=== PATIENT | female | born 1945 | race Hispanic/Latino ===

== ENCOUNTER 2017-11-04 11:07 | Outpatient (CLI) | payer MEDICARE ==
--- NOTE | 2017-11-05 13:05 | Mammography Report ---
BILATERAL DIGITAL SCREENING MAMMOGRAM with CAD : 11/04/17 11:07:00 CLINICAL: Routine screening. COMPARISON:04/10/16 FINDINGS: The breasts are heterogeneously dense, which may obscure small masses. No mass, architectural distortion or suspicious calcifications. IMPRESSION: No mammographic evidence of malignancy. BI-RADS CATEGORY: 2 -- Benign RECOMMENDATION: Routine mammographic screening in one year. COMMENT: Patient follow-up letters are generated by our [employer] application.
== END 2017-11-04 11:08 | disposition home or self-care (01) ==
LOC: MAMMO 11:07
PROVIDERS: ATTEND Internal Medicine
DX: Z12.31 Encounter for screening mammogram for malignant neoplasm of breast (principal)
CPT/HCPCS: 77067

== ENCOUNTER 2018-11-08 11:04 | Outpatient (CLI) | payer MEDICARE ==
--- NOTE | 2018-11-08 14:03 | Mammography Report ---
BILATERAL DIGITAL SCREENING MAMMOGRAM with CAD : 11/08/18 11:04:00 CLINICAL: Routine screening. COMPARISON:11/04/17 FINDINGS: The breasts are heterogeneously dense, which may obscure small masses. No mass, architectural distortion or suspicious calcifications. IMPRESSION: No mammographic evidence of malignancy. BI-RADS CATEGORY: 2 -- Benign RECOMMENDATION: Routine mammographic screening in one year. COMMENT: Patient follow-up letters are generated by our [employer] application.
== END 2018-11-08 11:05 | disposition home or self-care (01) ==
LOC: MAMMO 11:04
PROVIDERS: ATTEND Internal Medicine
DX: Z12.31 Encounter for screening mammogram for malignant neoplasm of breast (principal); I11.0 Hypertensive heart disease with heart failure; I50.9 Heart failure, unspecified; I25.10 Atherosclerotic heart disease of native coronary artery without angina pectoris; E78.5 Hyperlipidemia, unspecified; E78.00 Pure hypercholesterolemia, unspecified; K21.9 Gastro-esophageal reflux disease without esophagitis; Z87.891 Personal history of nicotine dependence
CPT/HCPCS: 77067

== ENCOUNTER 2019-03-15 20:54 | Emergency (ER) | payer MEDICARE ==
--- NOTE | 2019-03-15 21:36 | Event Note ---
ED Screening Note Date of service: 03/15/19 Time: 21:33 ED Screening Note: 73 y o f presents s/p fall cc of left elbow pain and abrasion and forehead abrasion This initial assessment/diagnostic orders/clinical plan/treatment(s) is/are subject to change based on patients health status, clinical progression and re- assessment by fellow clinical providers in the ED. Further treatment and workup at subsequent clinical providers discretion. Patient/guardian urged not to elope from the ED as their condition may be serious if not clinically assessed and managed. Initial orders include: head ct, xr elbow
--- NOTE | 2019-03-15 22:40 | Cat Scan Report ---
CT head/brain wo con INDICATION: Fell down fell down TECHNIQUE: Routine CT head without contrast. Sagittal and coronal reformatted images were obtained. A ll CT scans at this location are performed using CT dose reduction for ALARA by means of automated ex posure control. COMPARISON: None. FINDINGS: BRAIN / INTRACRANIAL CONTENTS: I do not see intracranial sequela from the trauma. I do not see air-fl uid level in the visualized portions of the paranasal sinuses. I do not see scalp hematoma. No acute hemorrhage, mass effect, midline shift, hydrocephalus, or acute, large territorial infarct. Moderate generalized cortical involution is seen. Normal temporal horn tips suggest normal medial tem poral lobes. Volume loss is seen in the cerebellar vermis. No significant white matter abnormality CRANIOCERVICAL JUNCTION: No significant abnormality. ORBITS: No significant abnormality of visualized orbits. SINUSES / MASTOIDS: No significant abnormality of the visualized paranasal sinuses or mastoid air ismael ls. ADDITIONAL FINDINGS: None. IMPRESSION: I do not see intracranial sequela from the trauma. Signer Name: Griffin Pantoja MD Signed: 03/15/2019 10:36 PM Workstation Name: [id number]
--- NOTE | 2019-03-15 23:04 | XRay Report ---
LEFT WRIST 2 VIEWS INDICATION / CLINICAL INFORMATION: wrist pain. COMPARISON: None available. FINDINGS: There is a comminuted moderately displaced fracture of the left distal radius with extension into the radial carpal and distal radioulnar joints. An associated ulnar styloid fracture is also noted. Signer Name: Eh Topete MD Signed: 03/15/2019 11:00 PM Workstation Name: [id number]
--- NOTE | 2019-03-15 23:05 | XRay Report ---
LEFT ELBOW 2 VIEWS INDICATION / CLINICAL INFORMATION: pain. COMPARISON: None available. FINDINGS: No fracture, dislocation or left elbow effusion is present. Signer Name: Eh Topete MD Signed: 03/15/2019 11:01 PM Workstation Name: [id number]
--- NOTE | 2019-03-15 23:06 | XRay Report ---
LEFT SHOULDER 3 VIEW(S) INDICATION / CLINICAL INFORMATION: pain COMPARISON: None available. FINDINGS: BONES / JOINT(S): Acute, comminuted fracture of the proximal humerus. There is a dominant humeral hea d component and a dominant greater tuberosity component. Mild impaction. No significant displacement is evident on these views. Inferiorly subluxed position of the humeral head is noted, without comple te glenohumeral dislocation. SOFT TISSUES: Postsurgical changes of CABG noted. ADDITIONAL FINDINGS: None. Signer Name: Ever Abraham MD Signed: 03/15/2019 11:01 PM Workstation Name: [id number]
[2019-03-15] MEDS ORDERED: NACL 0.9% 500 ML 500 ML IV ONE (23:22)
[2019-03-15] MEDS ORDERED: MORPHINE IV ONE (23:22)
[2019-03-15] MEDS ORDERED: BOOSTRIX IM ONE (23:24)
--- NOTE | 2019-03-15 23:25 | Emergency Department Report ---
ED General Adult HPI - General Chief complaint: Extremity Injury, Upper Stated complaint: LEFT ARM INJURY Time Seen by Provider: 03/15/19 21:33 Source: patient, RN notes reviewed, old records reviewed Mode of arrival: Ambulatory Limitations: Physical Limitation - History of Present Illness Initial comments: This is a pleasant 73-year-old female. This patient is not known to this provider previously. Her primary care doctor is Dr. Suarez Patient is right hand dominant, and has a history of heart disease, possible GERD, and hypertension. Patient presents to the ER after accidental mechanical fall. Patient reports being in her usual state of health when she tripped outside, landed on her left wrist, left elbow and left shoulder. She also skinn ed her right palm. She has pain in her left shoulder, left elbow and left wrist. Her pain is aching and sharp, increases with palpation and decreases with rest. There is no midline C-spine pain. There is no endorsement of weakness, numbness. There are some skin abrasions. She has a mild headache. She denies other complaints. -: Sudden Location: left, upper extremity Quality: other Consistency: other Improves with: other Worsens with: other - Related Data Home Medications Medication Instructions Recorded Confirmed Last Taken Rosuvastatin Calcium [Crestor] 40 mg PO QHS 08/01/13 07/01/16 07/08/16 Telmisartan [Micardis] 40 mg PO QHS 08/01/13 07/01/16 07/08/16 Multivitamin [Multi-Vitamin Daily] 1 tab PO DAILY 02/19/14 07/01/16 07/08/16 Previous Rx's Medication Instructions Recorded Last Taken Type Famotidine [Pepcid] 20 mg PO PREOP tablet 07/09/16 Unknown Rx oxyCODONE /ACETAMINOPHEN [Percocet 1 tab PO ONCE PRN #30 tablet 07/09/16 Unknown Rx 5/325 mg] Allergies Allergy/AdvReac Type Severity Reaction Status Date / Time No Known Allergies Allergy Verified 07/01/16 16:20 ED Review of Systems ROS: Stated complaint: LEFT ARM INJURY Other details as noted in HPI Constitutional: denies: fever Eyes: denies: eye discharge ENT: denies: epistaxis Respiratory: denies: cough Cardiovascular: denies: chest pain Genitourinary: denies: dysuria Musculoskeletal: joint swelling, arthralgia, myalgia Skin: lesions Neurological: denies: weakness, numbness, paresthesias Psychiatric: anxiety ED Past Medical Hx - Past Medical History Hx Hypertension: No Hx Heart Attack/AMI: Yes (2001) Hx Congestive Heart Failure: Yes (2001) Hx GERD: Yes Hx Renal Disease: No Hx Seizures: No Hx Asthma: No Hx Tuberculosis: Yes (POSITIVE SKIN TEST , NEG CXR) - Surgical History Hx Open Heart Surgery: Yes (CABG X 5) - Social History Smoking Status: Never Smoker - Medications Home Medications: Home Medications Medication Instructions Recorded Confirmed Last Taken Type Rosuvastatin Calcium [Crestor] 40 mg PO QHS 08/01/13 07/01/16 07/08/16 History Telmisartan [Micardis] 40 mg PO QHS 08/01/13 07/01/16 07/08/16 History Multivitamin [Multi-Vitamin Daily] 1 tab PO DAILY 02/19/14 07/01/16 07/08/16 History Famotidine [Pepcid] 20 mg PO PREOP tablet 07/09/16 Unknown Rx oxyCODONE /ACETAMINOPHEN [Percocet 1 tab PO ONCE PRN #30 tablet 07/09/16 Unknown Rx 5/325 mg] ED Physical Exam - General Limitations: Physical Limitation General appearance: alert, anxious - Head Head exam: Present: normocephalic, other (superficial right-sided temporal abrasion) - Eye Eye exam: Present: normal appearance, EOMI, other (visual acuity intact to finger counting and color perception at close distance). Absent: nystagmus - ENT ENT exam: Present: normal exam, normal orophraynx, mucous membranes moist, TM's normal bilaterally, normal external ear exam - Neck Neck exam: Present: normal inspection, full ROM. Absent: tenderness, meningismus - Respiratory Respiratory exam: Present: normal lung sounds bilaterally. Absent: respiratory distress - Cardiovascular Cardiovascular Exam: Present: regular rate, normal rhythm, normal heart sounds. Absent: bradycardia, tachycardia, irregular rhythm, systolic murmur, diastolic murmur, rubs, gallop - GI/Abdominal GI/Abdominal exam: Present: soft. Absent: distended, tenderness, guarding, rebound, rigid, pulsatile mass - Extremities Exam Extremities exam: Present: tenderness, other (2+ pulses noted in the bilateral upper, lower extremities. Right upper extremity, bilateral lower extremities have no long bony tenderness. Right upper extremity has no hand, wrist or snuffbox tenderness. Sensation intact to light touch in the bilateral deltoid, median, radial, ulnar distribution. Bilateral upper extremity thumb opposition, and finger intrinsics are intact and have appropriate full range of motion). Absent: normal inspection (patient has a deformed left shoulder. There is a left elbow abrasion. There is swelling and abrasion noted to the volar aspect of the left wrist. There is abrasion noted to the left olecranon process.), calf tenderness - Back Exam Back exam: Present: normal inspection. Absent: tenderness, CVA tenderness (R), CVA tenderness (L), paraspinal tenderness, vertebral tenderness - Neurological Exam Neurological exam: Present: alert, oriented X3, other (2+ pulses noted in the bilateral upper, lower extremities. There is no long bone tenderness. Musculoskeletal compartments are soft. The pelvis is stable.). Absent: motor sensory deficit - Psychiatric Psychiatric exam: Present: anxious - Skin Skin exam: Present: warm, abrasion, ecchymosis ED Course Vital Signs 03/15/19 03/15/19 03/15/19 21:34 23:34 23:36 Temperature 98.0 F 98.4 F Pulse Rate 65 83 81 Respiratory 16 12 16 Rate Blood Pressure 93/57 Blood Pressure 127/70 [Right] O2 Sat by Pulse 100 100 Oximetry 03/16/19 03/16/19 03/16/19 00:00 01:00 02:00 Temperature Pulse Rate 73 74 62 Respiratory 11 L 13 14 Rate Blood Pressure 135/68 135/68 129/50 Blood Pressure [Right] O2 Sat by Pulse 97 99 Oximetry 03/16/19 03:00 Temperature Pulse Rate 69 Respiratory 15 Rate Blood Pressure 131/58 Blood Pressure [Right] O2 Sat by Pulse 98 Oximetry - Reevaluation(s) Reevaluation #1: 03/16/19 04:33 Dr Patton, hospital medicine at [facility], to admit, with orthopedics to follow transfer accepted ED Medical Decision Making - Lab Data Vital Signs 03/15/19 03/15/19 21:34 23:36 Temperature 98.0 F 98.4 F Pulse Rate 65 81 Respiratory 16 16 Rate Blood Pressure 93/57 Blood Pressure 127/70 [Right] O2 Sat by Pulse 100 100 Oximetry - Radiology Data Radiology results: report reviewed, image reviewed Noncontrast CT scan of the brain is negative for acute disease. X-ray of the left elbow was negative for fracture, question anterior cell sign. There is no tenderness. X-ray of the left shoulder demonstrates a proximal humerus fracture, and subluxation, DJD, x-ray of the left wrist demonstrates an impacted distal radius fracture, and distal styloid process fracture. [address] [address] XRay Report Signed Patient: MICHAEL WATSON MR#: [id number] : 1945 Acct:[id number] Age/Sex: 73 / F ADM Date: 03/15/19 Loc: ED Attending Dr: Ordering Physician: ALICIA RAYA Date of Service: 03/15/19 Procedure(s): XR wrist 2V LT Accession Number(s): [id number] cc: ALICIA RAYA Fluoro Time In Minutes: LEFT WRIST 2 VIEWS INDICATION / CLINICAL INFORMATION: wrist pain. COMPARISON: None available. FINDINGS: There is a comminuted moderately displaced fracture of the left distal radius with extension into the radial carpal and distal radioulnar joints. An associated ulnar styloid fracture is also noted. Signer Name: Eh Topete MD Signed: 03/15/2019 11:00 PM Workstation Name: [id number] Transcribed By: TL Dictated By: Eh Topete MD Electronically Authenticated By: Eh Topete MD Signed Date/Time: 03/15/[address] [address] XRay Report Signed Patient: MICHAEL WATSON MR#: [id number] : 1945 Acct:[id number] Age/Sex: 73 / F ADM Date: 03/15/19 Loc: ED Attending Dr: Ordering Physician: ALICIA RAYA Date of Service: 03/15/19 Procedure(s): XR shoulder 2+V LT Accession Number(s): [id number] cc: ALICIA RAYA Fluoro Time In Minutes: LEFT SHOULDER 3 VIEW(S) INDICATION / CLINICAL INFORMATION: pain COMPARISON: None available. FINDINGS: BONES / JOINT(S): Acute, comminuted fracture of the proximal humerus. There is a dominant humeral head component and a dominant greater tuberosity component. Mild impaction. No significant displacement is evident on these views. Inferiorly subluxed position of the humeral head is noted, without complete glenohumeral dislocation. SOFT TISSUES: Postsurgical changes of CABG noted. ADDITIONAL FINDINGS: None. Signer Name: Ever Abraham MD Signed: 03/15/2019 11:01 PM Workstation Name: [id number] Transcribed By: MARYAN Dictated By: Ever Abraham MD Electronically Authenticated By: Ever Abraham MD Signed Date/Time: 03/15/19 9299 - Medical Decision Making Differential diagnosis, including but not limited to, intracranial injury, left upper extremity injury, multiple fractures, contusions, abrasions Assessment and plan: 73-year-old female, status post mechanical fall, clinically sober at this time, GCS of 15, with no midline cervical spine pain, tenderness, not distracted, not intoxicated. found to have multiple orthopedic injuries, or varus complexity, including left shoulder, left wrist. She is neurovascularly intact. She will be given pain medication and a tetanus vaccination, left wrist will be splinted with a volar splint and thumb spica, with padding for abrasions, and left shoulder will be left in sling. This hospital does not have orthopedic surgery available for consultation. Patient has multiple injuries and poor functional status at this time which require urgent/emergent orthopedic evaluation. Therefore, the patient will be transferred. Contacted [facility] transfer center, discussed the case with orthopedic surgeon, Dr. Mendoza, who indicated his group would be happy to follow in consultation. We are awaiting callback from hospitalist at [facility] to finalize transfer. Critical care attestation.: If time is entered above; I have spent that time in minutes in the direct care of this critically ill patient, excluding procedure time. ED Disposition Clinical Impression: Fall, Left humeral fracture, Fracture of left radius Dis[facility]: [facility] IP Is pt being admited?: No Does the pt Need Aspirin: No Condition: Stable Referrals: PRIMARY CARE, [Referring] - 3-5 Days
[2019-03-16] MEDS ORDERED: ZOFRAN ONE (00:07)
[2019-03-16] MEDS ORDERED: MORPHINE IV ONE ×2 (03:39→04:47)
[2019-03-16] MEDS ORDERED: BOOSTRIX IM ONE (04:17)
[2019-03-16 07:06] VITALS: BP 105/62
== END 2019-03-16 04:50 | disposition short-term general hospital (02) ==
LOC: ED 20:54
DX: S52.502A Unspecified fracture of the lower end of left radius, initial encounter for closed fracture (principal); S52.612A Displaced fracture of left ulna styloid process, initial encounter for closed fracture; S42.292A Other displaced fracture of upper end of left humerus, initial encounter for closed fracture; F41.9 Anxiety disorder, unspecified; I11.0 Hypertensive heart disease with heart failure; I50.9 Heart failure, unspecified; I25.2 Old myocardial infarction; K21.9 Gastro-esophageal reflux disease without esophagitis; Z98.890 Other specified postprocedural states; Z79.899 Other long term (current) drug therapy; W01.0XXA Fall on same level from slipping, tripping and stumbling without subsequent striking against object, initial encounter; Y93.89 Activity, other specified; Y92.89 Other specified places as the place of occurrence of the external cause; Y99.8 Other external cause status
CPT/HCPCS: 29125; 70450; 73030; 73070; 73100; 90471; 90715; 96374; 96376; 99285; J2270; J7040; J2405

== ENCOUNTER 2021-12-12 10:59 | Outpatient (CLI) | payer MEDICARE ==
--- NOTE | 2021-12-12 17:55 | Mammography Report ---
DIGITAL SCREENING MAMMOGRAM WITH CAD, 12/12/2021 CLINICAL INFORMATION / INDICATION: Routine screening mammography. SCREENING MAMMOGRAM TECHNIQUE: Digital bilateral 2D mammography was obtained in the craniocaudal and mediolateral obliqu e projections. This examination was interpreted with the benefit of Computer-Aided Detection analysis . COMPARISON: 11/08/18. FINDINGS: Breast Density: The breasts are heterogeneously dense, which may obscure small masses. No dominant mass, suspicious calcifications, or architectural distortion in either breast. IMPRESSION: No mammographic evidence of malignancy. Follow up recommendation: Routine yearly screening mammogram. BI-RADS Category 1: NEGATIVE A "normal" or negative report should not discourage follow up or biopsy of a clinically significant f inding. A written summary of these findings will be mailed to the patient. The patient will be entered into a mammography reporting system which will generate a reminder letter for the patient's next appointmen t at the appropriate interval. The [employer] recommends yearly mammograms starting at age 40 and continuing as l queenie as a woman is in good health. Breast MRI is recommended for women with an approximate 20-25% or greater lifetime risk of breast cancer, including women with a strong family history of breast or ova seb cancer or who have been treated for Hodgkin's disease. Signer Name: Alex Sawyer MD Signed: 12/12/2021 5:51 PM Workstation Name: [id number]
== END 2021-12-12 11:00 | disposition home or self-care (01) ==
LOC: MAMMO 10:59
PROVIDERS: ATTEND Internal Medicine
DX: Z12.31 Encounter for screening mammogram for malignant neoplasm of breast (principal)
CPT/HCPCS: 77067